=== PATIENT | male | born 1990 | race Caucasian/White ===

== ENCOUNTER 2018-11-16 16:37 | Emergency (ER) | payer SELFPAY ==
[2018-11-16 17:29] LABS: ALT (SGPT) 32 U/L (8-55); AST (SGOT) 22 U/L (5-34); Albumin 4.6 g/dL (3.5-5.0); Alkaline Phosphatase 67 U/L (40-150); Anion Gap 14 mmol/L (10-20); BUN (Urea Nitrogen) 8 mg/dL (8.9-20.6); Calc. Creatinine Clearance 0 mL/min (70-130); Calcium 9.6 mg/dL (7.8-10.44); Carbon Dioxide 24 mmol/L (22-29); Chloride 106 mmol/L (98-107); Estimated GFR-MDRD 83; Globulin 2.5 g/dL (2.4-3.5); Glucose 90 mg/dL (70-105); Lipase 12 U/L (8-78); Potassium 3.9 mmol/L (3.5-5.1); Protein, Total 7.1 g/dL (6.0-8.3); Sodium 140 mmol/L (136-145)
[2018-11-16 17:35] LABS: Eosinophils 1 % (0-10); Lymphocytes 26 % (21-51); MDiff Complete? YES; Mean Corpuscular Hemoglobin 27.5 pg (27.0-31.0); Mean Corpuscular Volume 85.9 fL (78.0-98.0); Mean Platelet Volume 7.2 fL (7.4-10.4); Monocytes 3 % (0-10); Neutrophil 70 % (42-75); Platelet Count 296 thou/uL (130-400); RBC Distribution Width 12.5 % (11.5-14.5); Red Blood Cell (RBC) Count 5.46 mill/uL (4.70-6.10); White Blood Cell (WBC) Count 8.8 thou/uL (4.8-10.8)
--- NOTE | 2018-11-16 18:01 | RAD ---
PORTABLE CHEST: HISTORY: Right-sided chest and back pain. FINDINGS: Heart size appears at the upper limits of normal. Mediastinal structures are unremarkable. There is linear atelectasis or scarring in the lung bases. IMPRESSION: Borderline heart size with linear atelectasis or scarring in the lung base. POS: [facility]
[2018-11-16] MEDS ORDERED: Ketorolac Tromethamine 30 MG/ML VIAL ONE (18:23)
[2018-11-16 18:27] LABS: Bilirubin Negative (Negative); Blood, Urine Negative (Negative); Clarity Clear (Clear); Glucose, Urine (Dipstick) Negative (Negative); Leukocyte Negative (Negative); Nitrite Negative (Negative); Protein, Urine (Dipstick) Negative (Neg-Trace); Urobilinogen 0.2 mg/dL (Less than 2)
--- NOTE | 2018-11-16 19:10 | CT ---
CT Abdomen Pelvis W Con HISTORY: Right flank pain. COMPARISON: None. FINDINGS: Bibasilar atelectatic lung changes are seen. Liver shows fatty change. It is within normal limits of size. The spleen measures 12.6 cm. The pancre as and gallbladder regions appear unremarkable. Right and left adrenal glands and right and left kidneys are normal. No obstruction. No significant p eriaortic or mesenteric adenopathy. CT of pelvis performed with contrast enhancement: The appendix is normal. There is no evidence of andre nopathy, mass or free fluid. IMPRESSION: 1. Bibasilar atelectasis. 2. Fatty change of the liver.
--- NOTE | 2018-11-16 20:41 | CT ---
CT angiogram of chest performed with intravenous contrast enhancement with 3-D reconstructions HISTORY: Shortness of breath. Elevated d-dimer. COMPARISON: CT of abdomen and pelvis done earlier today. FINDINGS: There are bibasilar atelectatic appearing lung changes seen. No definite confluent infiltra tive process noted. Upper lung zones are clear. No pleural effusions. There is no significant mediastinal adenopathy. Small nodes are noted in the as ago esophageal recess region. No significant hilar lymphadenopathy. The thoracic aorta is normal in caliber. There is less than optimal pulmonary artery opacification I do not see any cyst definite signs of a c entral pulmonary embolus peripheral emboli cannot be excluded on the basis of this examination due to the timing of the bolus. There are suggestion of fatty changes of the liver. IMPRESSION: Limited examination for pulmonary embolus no signs of any definite central pulmonary embo aquilino contrast opacification is suboptimal. Bibasilar atelectatic appearing lung changes again noted.
[2018-11-16] MEDS ORDERED: Acetaminophen/Codeine 30-300mg Tablet ONE (20:55)
== END 2018-11-16 21:00 | disposition home or self-care (01) ==
LOC: BURERS 16:37
DX: S29.011A Strain of muscle and tendon of front wall of thorax, initial encounter (principal); F32.9 Major depressive disorder, single episode, unspecified; F17.210 Nicotine dependence, cigarettes, uncomplicated; X58.XXXA Exposure to other specified factors, initial encounter
CPT/HCPCS: 71045; 71275; 74177; 80053; 81003; 83690; 84484; 85025; 85379; 96374; J1885